=== PATIENT | male | born 1975 | race Hispanic/Latino ===

== ENCOUNTER 2016-11-28 16:56 | Emergency (ER) | payer OTHER ==
[~2016-11-28] VITALS: Ht 180.3 cm; Wt 90.7 kg
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
[2016-11-28 19:33] VITALS: BP 123/87
== END 2016-11-28 19:33 | disposition home or self-care (01) ==
LOC: ER 17:01
DX: S39.92XA Unspecified injury of lower back, initial encounter (principal); S19.9XXA Unspecified injury of neck, initial encounter; M47.817 Spondylosis without myelopathy or radiculopathy, lumbosacral region; V43.52XA Car driver injured in collision with other type car in traffic accident, initial encounter; Y92.414 Local residential or business street as the place of occurrence of the external cause; Y99.8 Other external cause status
CPT/HCPCS: 70450; 72125; 72131; 99283